=== PATIENT | female | born 1975 | race Hispanic/Latino ===

== ENCOUNTER 2019-04-21 12:45 | Inpatient (IN) | payer SELFPAY ==
[~2019-04-21] VITALS: Ht 154.9 cm; Wt 58.1 kg
[2019-04-22 15:02] LABS: BASOPHILS % (AUTO) 0.6 % (0.0-5.0); EOSINOPHILS % (AUTO) 0.5 % (0.0-8.0); HEMATOCRIT 35.4 % (36-48); LYMPHOCYTES % (AUTO) 25.9 % (21.0-51.0); MEAN CORPUSCULAR HEMOGLOBIN 20.1 pg (27.0-33.0); MEAN CORPUSCULAR HGB CONC 31.7 g/dL (32.0-36.0); MEAN CORPUSCULAR VOLUME 63.3 fL (79-99); MONOCYTES % (AUTO) 7.4 % (3.0-13.0); NEUTROPHILS % (AUTO) 65.6 % (40.0-77.0); NUCLEATED RED BLOOD CELLS 0.1 % (0.0-0.19); PLATELET COUNT (AUTO) 313 K/uL (130-400); RED CELL DISTRIBUTION WIDTH 16.2 % (11.0-15.5); WHITE BLOOD COUNT (AUTO) 5.6 K/uL (4.8-10.8)
[2019-04-22 15:07] VITALS: BP 120/69
[2019-04-23] VITALS (20 sets, daily range): BP systolic 98–117; BP diastolic 52–73
[2019-04-23] MEDS ORDERED: CALDOLOR 800MG+NS 250ML 250 ML IV ONE (08:40)
[2019-04-23] MEDS: CEFAZOLIN SODIUM 1 GM VIAL IVP ONE ×2 (09:03→09:25)
[2019-04-23] MEDS: LACTATED RINGERS 1000ML 1,000 ML IV SCH ×2 (09:03→11:35)
[2019-04-23] MEDS ORDERED: DURAMORPH PF1 MG/ML 10ML AMP IV ONE (09:13)
[2019-04-23] MEDS ORDERED: MIDAZOLAM HCL 1 MG/ML 2ML VIAL ONE (09:15)
[2019-04-23] MEDS ORDERED: FENTANYL CITRATE PF 50 MCG/1 ML 2ML VIAL ONE (09:15)
[2019-04-23] MEDS ORDERED: PROPOFOL 10 MG/ML 20ML VIAL IV ONE (09:15)
[2019-04-23] MEDS ORDERED: ROCURONIUM 10MG/1ML SYR 10 MG/ML ML ONE (09:30)
[2019-04-23] MEDS ORDERED: DEXAMETHASONE SOD PHOSPHATE 10MG/ML 1ML VIAL ONE (09:53)
[2019-04-23] MEDS ORDERED: EPHEDRINE SULFATE 50 MG/ML AMPULE ONE (10:21)
[2019-04-23] MEDS ORDERED: NEOSTIGMINE 5MG/5ML SYR IV ONE (11:21)
[2019-04-23] MEDS ORDERED: GLYCOPYRROLATE 1 MG/5 ML SYRINGE ONE (11:21)
[2019-04-23] MEDS ORDERED: IBUPROFEN 600 MG TABLET PO PRN (11:45)
[2019-04-23] MEDS ORDERED: IBUPROFEN 800 MG TAB PO PRN (11:45)
[2019-04-23] MEDS ORDERED: MEPERIDINE-PF 75 MG/ML SYG IM PRN (11:45)
[2019-04-23] MEDS ORDERED: BISACODYL 10 MG SUPP.RECT RC PRN ×2 (11:45)
[2019-04-23] MEDS ORDERED: PROMETHAZINE HCL 25 MG/ML 1ML AMPULE IM PRN ×2 (11:45)
[2019-04-23] MEDS ORDERED: DOCUSATE SODIUM 100 MG CAP PO PRN ×2 (11:45)
[2019-04-23] MEDS ORDERED: ACETAMINOPHEN-CODEINE 300/30MG TAB PO PRN ×2 (11:45)
[2019-04-23] MEDS ORDERED: SIMETHICONE 80 MG TAB.CHEW PO PRN ×2 (11:45)
[2019-04-23] MEDS ORDERED: MEPERIDINE-PF 25 MG/ML SYG ONE ×3 (11:48→22:14)
[2019-04-23] MEDS ORDERED: MORPHINE SULFATE 4 MG/1ML SYG ONE (11:55)
--- NOTE | 2019-04-23 12:35 | NUR ---
REPORT RECEIVED FROM MATTHEW LAYTON IN PACU AND PATIENT WAS TRANSFERED VIA BED TO ROOM. ORIENTED PT TO ROOM AND CALL LIGHT. IS ISSUED AND INSTRUCTED ON USE. AFTER INSTRUCTIONS WAS ABLE TO GET IS TO 1500.
[2019-04-23] MEDS ORDERED: IRON18TA PO (12:45)
[2019-04-23] MEDS ORDERED: ONDANSETRON HCL 4 MG/2 ML VIAL IVP PRN (15:45)
--- NOTE | 2019-04-23 16:00 | NUR ---
MEDICATED PATIENT WITH ZOFRAN FOR C/O NAUSEA. PATIENT HAD FINISHED HER WHOLE PITCHER OF WATER. INSTRUCTED PATIENT TO NOT DRINK TOO MUCH WATER UNTIL HER NAUSEA GOES AWAY. VERBALIZED UNDERSTANDING INSTRUCTIONS GIVEN.
[2019-04-23] MEDS: DEXTROSE 5 %-0.45 % NACL 1,000 ML IV PRN (17:15)
[2019-04-23] MEDS: IBUPROFEN 800 MG TAB PO SCH ×3 (17:33→23:35)
[2019-04-23] MEDS: HYDROCODONE/ACETAMINOPHEN 5/325 MG TAB PO PRN ×3 (17:35→17:54)
[2019-04-23] MEDS: CALDOLOR 800MG+NS 250ML 250 ML IV SCH (19:22)
--- NOTE | 2019-04-23 20:10 | NUR ---
PT. HAD CLEAR EMESIS OF 200MLS ZOFRAN OFFERED BUT SHE REFUSED.
[2019-04-23] MEDS ORDERED: MEPERIDINE-PF 50 MG/ML SYG ONE (22:13)
--- NOTE | 2019-04-23 22:17 | NUR ---
PT. MED. FOR C/O PAIN AND NAUSEA, NO EMESIS AT THIS TIME.
--- NOTE | 2019-04-23 23:17 | NUR ---
ASLEEP QUIETLY; DENIED FURTHER PAIN AND N/V.
[2019-04-24 03:10] VITALS: BP 103/63
[2019-04-24] MEDS: CALDOLOR 800MG+NS 250ML 250 ML IV SCH (03:55)
[2019-04-24] MEDS: DEXTROSE 5 %-0.45 % NACL 1,000 ML IV PRN (03:55)
--- NOTE | 2019-04-24 06:35 | NUR ---
ANGEL CATH DC'D, CATHETER TIP INTACT. PT INST TO CALL FOR ASSIST BEFORE GETTING OOB, VERBALIZED UNDERSTANDING.
[2019-04-24 06:43] LABS: HEMATOCRIT 26.6 % (36-48); MEAN CORPUSCULAR HEMOGLOBIN 20.7 pg (27.0-33.0); MEAN CORPUSCULAR HGB CONC 32.5 g/dL (32.0-36.0); MEAN CORPUSCULAR VOLUME 63.8 fL (79-99); NUCLEATED RED BLOOD CELLS 0.1 % (0.0-0.19); PLATELET COUNT (AUTO) 232 K/uL (130-400); RED BLOOD CELL COUNT(AUTO) 4.17 MIL/uL (4.00-5.50); RED CELL DISTRIBUTION WIDTH 15.7 % (11.0-15.5)
[2019-04-24 07:25] VITALS: BP 103/65
--- NOTE | 2019-04-24 08:45 | NUR ---
PATIENT ASSESSED AND INCISION OPEN TO AIR. NO DRAINAGE OR REDNESS NOTE TO INCISION ONLY SOME BRUISING. REINFORCED IMPORTANCE OF HOW TO WASH INCISION DURING SHOWER AND VERBALIZED UNDERSTANDING. PATIENT IS STABLE AND DENIES ANY FURTHER NAUSEA AND VOMITING.
--- NOTE | 2019-04-24 09:50 | NUR ---
DR. MAHAN ROUNDED AND INDICATED TO PATIENT THAT HE HAD BEEN INFORMED BY DR. GOODMAN OF PATIENT WANTING TO GO HOME TODAY AND PATIENT INDICATED THAT SHE DID. INSTRUCTED PATIENT SHE COULD GO HOME BUT SCRIPT WOULD BE GIVEN FOR IRON.
[2019-04-24 11:26] VITALS: BP 114/68
--- NOTE | 2019-04-24 12:00 | NUR ---
PATIENT UP AND VOIDED A SECOND TIME AND VOIDED 400CC OF CLEAR YELLOW URINE. PIV WAS REMOVED AND SITE WITHIN NORMAL LIMITS.
[2019-04-24] MEDS: IBUPROFEN 800 MG TAB PO SCH (12:05)
--- NOTE | 2019-04-24 13:05 | NUR ---
PATIENT WAS TAKEN VIA W/C TO FAMILY VEHICLE AND WAS DISCHARGED TO HOME. STABLE AND DENIES PAIN. BINDER APPLIED TO INCISION FOR SUPPORT.
== END 2019-04-24 13:05 | disposition home or self-care (01) | DRG 743 ==
LOC: EDSTATUS 12:45 → DAHIP 04-23 07:49 → WSH 04-23 12:35
PROVIDERS: ADMIT Obstetrics & Gynecology; ATTEND Obstetrics & Gynecology
PROC: 0UB70ZZ Excision of Bilateral Fallopian Tubes, Open Approach (ICD-10-PCS; 2019-04-23)
PROC: 0UT90ZZ Resection of Uterus, Open Approach (ICD-10-PCS; principal; 2019-04-23 09:00)
PROC: 0DNW0ZZ Release Peritoneum, Open Approach (ICD-10-PCS; 2019-04-23 09:00)
PROC: 0TNB0ZZ Release Bladder, Open Approach (ICD-10-PCS; 2019-04-23 09:00)
DX: D25.9 Leiomyoma of uterus, unspecified (principal); N73.6 Female pelvic peritoneal adhesions (postinfective)
CPT/HCPCS: 36415; 84703; 85025; 85027; 86850; 86900; 86901; 88305; 88307; A4344; G0378; J0690; J1100; J1741; J2175; J2250; J2270; J2274; J2405; J2550; J2704; J2710; J3010; J3490; J7030; J7120